=== PATIENT | female | born 1960 ===

== ENCOUNTER 2020-11-07 13:21 | Emergency (ER) | payer SELFPAY ==
[2020-11-07] MEDS ORDERED: Sodium Chloride 0.9% 10 ML Syringe FLUSH PRN (14:37)
[2020-11-07] MEDS ORDERED: Ondansetron 4 MG/2 ML SDV IV ONE (14:38)
--- NOTE | 2020-11-07 15:01 | EDM.PDOC ---
ED HPI GENERAL MEDICAL PROBLEM - General Source of Information: Reports: Patient History Limitations: Reports: No Limitations - History of Present Illness Onset: Today, Sudden Duration: Other (seconds) Location: Reports: Head Quality: Reports: Ache Severity: Mild Improves with: Reports: None Worsens with: Reports: None <Brian Jones - Last Filed: 11/07/20 15:56> - General Source of Information: Reports: Patient, RN, RN Notes Reviewed History Limitations: Reports: No Limitations - History of Present Illness Onset: Today, Sudden <Isauro Fuentes - Last Filed: 11/07/20 16:03> - General Chief Complaint: Syncope Stated Complaint: WAS EATING AND PASSED OUT LIKE SHE WAS CHOKING Time Seen by Provider: 11/07/20 14:40 - History of Present Illness INITIAL COMMENTS - FREE TEXT/NARRATIVE: 60 y/o F witnessed syncopal event lasting 30 seconds. Pt was in a van eating at [employer] when her friends state the pt lost consciousness and became lifeless for several seconds. Pt awoke and vomited normal food particles. Currently nauseated with a SON. No similar symptoms in the past. Denies CP, db, neck pn, back pn, fever, cough, chills, drugs, etoh. (Brian Jones) - Related Data Home Meds: Home Meds lisinopriL [Lisinopril] 10 mg PO DAILY 11/07/20 [History] metFORMIN HCl [Metformin HCl] 500 mg PO DAILY 11/07/20 [History] Past Medical History Cardiovascular History: Reports: High Cholesterol, Hypertension Endocrine/Metabolic History: Reports: Diabetes, Type II - Past Surgical History GI Surgical History: Reports: Cholecystectomy Female Surgical History: Reports: Tubal Ligation <Brian Jones - Last Filed: 11/07/20 15:56> Social & Family History - Tobacco Use Tobacco Use Status *Q: Current Every Day Tobacco User Years of Tobacco use: 25 Packs/Tins Daily: 1 - Caffeine Use Caffeine Use: Reports: Coffee - Recreational Drug Use Recreational Drug Use: No <Brian Jones - Last Filed: 11/07/20 15:56> - Family History Family Medical History: Unobtainable - Living Situation & Occupation Living situation: Reports: with Significant Other <Isauro Fuentes - Last Filed: 11/07/20 16:03> ED ROS GENERAL - Review of Systems Review Of Systems: Comprehensive ROS is negative, except as noted in HPI. <Brian Jones - Last Filed: 11/07/20 15:56> - Physical Exam Exam: See Below Exam Limited By: No Limitations General Appearance: Alert, WD/WN, No Apparent Distress Eye Exam: Bilateral Eye: PERRL Ears: Normal External Exam, Normal Canal, Hearing Grossly Normal, Normal TMs Nose: Normal Inspection, Normal Mucosa, No Blood Throat/Mouth: Normal Inspection, Normal Lips, Normal Teeth, Normal Gums, Normal Oropharynx, Normal Voice, No Airway Compromise Head Exam: Atraumatic Neck: Normal Inspection, Supple, Non-Tender, Full Range of Motion Respiratory/Chest: No Respiratory Distress, Lungs Clear, Normal Breath Sounds Cardiovascular: Normal Peripheral Pulses, Regular Rate, Rhythm GI/Abdominal: Non-Tender (Female) Exam: Deferred Rectal (Female) Exam: Deferred Neuro Exam (Abbreviated): Alert, Oriented, CN II-XII Intact, Normal Cognition, Normal Gait, Normal Reflexes, No Motor/Sensory Deficits Back Exam: Normal Inspection, Full Range of Motion, NT Extremities: Normal Inspection, Normal Range of Motion, Non-Tender, No Pedal Edema, Normal Capillary Refill Psychiatric: Normal Affect, Normal Mood Skin Exam: Warm, Intact <Brian Jones - Last Filed: 11/07/20 15:56> #1 Interpretation EKG Date: 11/07/20 Time: 04:57 Rhythm: Other (SR) Rate (Beats/Min): 71 [place]: Normal P-Wave: Present QRS: Other (small inferior Q waves) ST-T: Normal QT: Normal Comparison: NA - No Prior EKG <Isauro Fuentes - Last Filed: 11/07/20 16:03> Course <Brian Jones - Last Filed: 11/07/20 15:56> - Vital Signs Last Recorded V/S: Last Vital Signs Temp 97.1 F 11/07/20 14:37 Pulse 79 11/07/20 14:37 Resp 14 11/07/20 14:37 BP 133/76 11/07/20 14:37 Pulse Ox 94 L 11/07/20 14:37 - Orders/Labs/Meds Orders: Active Orders 24 hr Category Date Time Status Blood Glucose Check, Bedside [RC] ONETIME Care 11/07/20 14:37 Active Peripheral IV Care [RC] . DIRECTED Care 11/07/20 14:38 Active DRUG SCREEN URINE BIORAD [URCHEM] Stat Lab 11/07/20 14:37 Ordered UA RFX DOMENICO AND CULT IF INDIC [URIN] Stat Lab 11/07/20 14:38 Ordered Sodium Chloride 0.9% [Saline Flush] Med 11/07/20 14:37 Active 10 ml FLUSH ASDIRECTED PRN Peripheral IV Insertion Adult [OM.PC] Stat Oth 11/07/20 14:38 Ordered Medication Orders Sodium Chloride (Sodium Chloride 0.9% 10 Ml Syringe) 10 ml FLUSH ASDIRECTED PRN PRN Reason: Keep Vein Open Last Admin: 11/07/20 15:00 Dose: 10 ml Documented by: KENNEDI Labs: Laboratory Tests 11/07/20 11/07/20 11/07/20 Range/Units 14:53 14:53 14:53 WBC 10.4 H (5.0-10.0) 10^3/uL RBC 4.59 (4.2-5.4) 10^6/uL Hgb 13.8 (12.0-16.0) g/dL Hct 40.8 (37.0-47.0) % MCV 88.9 (80-100) fL MCH 30.1 (27.0-34.0) pg MCHC 33.8 (33.0-35.0) g/dL Plt Count 258 (150-450) 10^3/uL Neut % (Auto) 76.0 H (42.2-75.2) % Lymph % (Auto) 18.1 L (20.5-50.1) % [place] % (Auto) 4.3 (2-8) % Eos % (Auto) 1.1 (1.0-3.0) % Baso % (Auto) 0.5 (0.0-1.0) % D-Dimer, Quantitative 572 H (0-400) ng/mL Sodium 141 (136-145) mmol/L Potassium 3.7 (3.5-5.1) mmol/L Chloride 103 (98-107) mmol/L Carbon Dioxide 25 (21-32) mmol/L Anion Gap 16.7 H (7-13) mEq/L BUN 15 (7-18) mg/dL Creatinine 0.87 (0.55-1.02) mg/dL Est Cr Clr Drug Dosing 69.37 mL/min Estimated GFR (MDRD) > 60 BUN/Creatinine Ratio 17.2 (No establ ref range) Glucose 159 H (70-99) mg/dL Calcium 8.6 (8.5-10.1) mg/dL Total Bilirubin 0.4 (0.2-1.0) mg/dL AST 14 L (15-37) U/L ALT 20 (14-59) U/L Alkaline Phosphatase 106 (46-116) U/L Troponin I High Sens < 4 (<=51) pg/mL Total Protein 7.7 (6.4-8.2) g/dL Albumin 3.5 (3.4-5.0) g/dL Globulin 4.2 Albumin/Globulin Ratio 0.8 Amylase 54 (25-115) U/L Lipase 276 (73-393) U/L Ethyl Alcohol < 3 (0) mg/dL Meds: Medications Generic Name Dose Route Start Last Admin Trade Name Freq PRN Reason Stop Dose Admin Sodium Chloride 10 ml 11/07/20 14:37 11/07/20 15:00 Sodium Chloride 0.9% 10 Ml Syringe FLUSH 10 ml ASDIRECTED PRN Administration Keep Vein Open Discontinued Medications Generic Name Dose Route Start Last Admin Trade Name Freq PRN Reason Stop Dose Admin Ondansetron HCl 4 mg 11/07/20 14:38 11/07/20 14:59 Ondansetron 4 Mg/2 Ml Sdv IV 11/07/20 14:39 4 mg ONETIME ONE Administration - Re-Assessments/Exams Free Text/Narrative Re-Assessment/Exam: 11/07/20 15:56 Discussed exams, labs, and radiological findings with patient and explained no cause of her syncopal event could be determined. Patient understands and would like to leave now. Instructed pt to follow up with her primary care facility or return to the ER if any new symptoms or concerns develop. (Brian Jones) Departure - Departure Time of Disposition: 15:59 Condition: Good - Discharge Information *PRESCRIPTION DRUG MONITORING PROGRAM REVIEWED*: Not Applicable *COPY OF PRESCRIPTION DRUG MONITORING REPORT IN PATIENT [facility]: Not Applicable <Brian Jones - Last Filed: 11/07/20 15:56> <Isauro Fuentes - Last Filed: 11/07/20 16:03> - Departure Disposition: Home, Self-Care 01 Clinical Impression: Syncope Qualifiers: Syncope type: unspecified Qualified Code(s): R55 - Syncope and collapse - Discharge Information Instructions: Syncope, [id number] Forms: ED Department Discharge Additional Instructions: Drink plenty of fluids to maintain your hydration. If any new symptoms or concerns develop contact your primary care facility or return to the ER. Sepsis Event Note (ED) - Focused Exam Vital Signs: Vital Signs Temp Pulse Resp BP Pulse Ox 11/07/20 14:37 97.1 F 79 14 133/76 94 L - My Orders Last 24 Hours: My Active Orders 11/07/20 14:37 Blood Glucose Check, Bedside [RC] ONETIME DRUG SCREEN URINE BIORAD [URCHEM] Stat Sodium Chloride 0.9% [Saline Flush] 10 ml FLUSH ASDIRECTED PRN 11/07/20 14:38 Peripheral IV Care [RC] . DIRECTED UA RFX DOMENICO AND CULT IF INDIC [URIN] Stat Peripheral IV Insertion Adult [OM.PC] Stat - Assessment/Plan Last 24 Hours: My Active Orders 11/07/20 14:37 Blood Glucose Check, Bedside [RC] ONETIME DRUG SCREEN URINE BIORAD [URCHEM] Stat Sodium Chloride 0.9% [Saline Flush] 10 ml FLUSH ASDIRECTED PRN 11/07/20 14:38 Peripheral IV Care [RC] . DIRECTED UA RFX DOMENICO AND CULT IF INDIC [URIN] Stat Peripheral IV Insertion Adult [OM.PC] Stat
--- NOTE | 2020-11-07 15:24 | CR ---
PROCEDURE INFORMATION: Exam: XR Chest Exam date and time: 11/07/2020 3:09 PM Age: 60 years old Clinical indication: Syncope TECHNIQUE: Imaging protocol: XR of the chest. Views: 1 view. COMPARISON: No relevant prior studies available. FINDINGS: Lungs: Clear lungs. Pleural spaces: No pneumothorax. No sizable pleural effusion. Heart/Mediastinum: No cardiomegaly. Bones/joints: Unremarkable. IMPRESSION: Clear lungs.
[2020-11-07 15:27] LABS: ANION GAP 16.7 mEq/L (7-13); CHLORIDE,CL 103 mmol/L (98-107); SODIUM,NA 141 mmol/L (136-145)
--- NOTE | 2020-11-07 15:35 | CT ---
PROCEDURE INFORMATION: Exam: CT Head Without Contrast Exam date and time: 11/07/2020 3:05 PM Age: 60 years old Clinical indication: Dizziness and syncope and collapse TECHNIQUE: Imaging protocol: Computed tomography of the head without contrast. Radiation optimization: All CT scans at this facility use at least one of these dose optimization techniques: automated exposure control; mA and/or kV adjustment per patient size (includes targeted exams where dose is matched to clinical indication); or iterative reconstruction. COMPARISON: No relevant prior studies available. FINDINGS: Brain: Age-related involutional changes and chronic microvascular ischemic disease. No evidence for acute transcortical infarct. No mass effect or midline shift. No extra-axial collection. No acute intracranial hemorrhage. Basal cisterns are patent. Cerebral ventricles: No ventriculomegaly. Paranasal sinuses: Visualized sinuses are unremarkable. No fluid levels. Mastoid air cells: Visualized mastoid air cells are well aerated. Bones/joints: Unremarkable. No acute fracture. Soft tissues: Unremarkable. IMPRESSION: No evidence for acute transcortical infarct, acute intracranial hemorrhage, or mass effect.
== END 2020-11-07 16:21 | disposition home or self-care (01) ==
LOC: DL.ED 13:21
DX: R55 Syncope and collapse (principal); E78.00 Pure hypercholesterolemia, unspecified; I10 Essential (primary) hypertension; E11.9 Type 2 diabetes mellitus without complications; Z79.84 Long term (current) use of oral hypoglycemic drugs; Z79.899 Other long term (current) drug therapy; Z72.0 Tobacco use
CPT/HCPCS: 36415; 70450; 71045; 80053; 80307; 82150; 83690; 84484; 85025; 85379; 93005; 96374; 99284; J2405